=== PATIENT | female | born 1945 | race Caucasian/White ===

== ENCOUNTER 2018-01-30 15:19 | Outpatient (RCR) | payer MEDICARE, BC ==
[~2018-01-30 15:19] MED LIST: GLUCOSAMINE SU500 M2; NORCO 325 MG-7.1 TAB PO; ULTRAM 50MG TAB50 MG PO
== END 2018-03-19 08:01 | disposition home or self-care (01) ==
LOC: WSOT 15:19
DX: S52.572D Other intraarticular fracture of lower end of left radius, subsequent encounter for closed fracture with routine healing (principal); Z98.890 Other specified postprocedural states
CPT/HCPCS: G8987-GO; G8988-GO